=== PATIENT | female | born 1965 | race Caucasian/White ===

== ENCOUNTER 2018-12-12 11:48 | Day surgery (SDC) | payer OTHER ==
[~2018-12-12] VITALS: Ht 162.6 cm; Wt 107.0 kg
[2018-12-12] MEDS ORDERED: VITAMIN D50000 UNI1 PO (12:08)
--- NOTE | 2018-12-12 13:57 | NUR ---
12/12/18 1357 Chloe Chowdary 1311 PT ARRIVED IN PACU SLEEPY WITH NO C/O'S. ABD SOFT AND PASSING FLATUS. 1320 DR AT BEDSIDE TALKING TO PT. 1345 SITTING UP IN BED SIPPING ON JUICE.
--- NOTE | 2018-12-12 14:36 | OR ---
[facility] [address] [place], [place] [address] Signed DATE OF OPERATION: 12/12/2018 SURGEON: Millicent Sanchez MD PREOPERATIVE DIAGNOSIS: Colon screening. POSTOPERATIVE DIAGNOSIS: Normal colon to cecum. PROCEDURE PERFORMED: Total colonoscopy to cecum. ANESTHESIA: Intravenous sedation with fentanyl 100 mcg and Versed 5 mg. INDICATION: This 53-year-old morbidly obese white woman is a patient of Dr. Sinclair. She is referred for screening colonoscopy on the basis of her age. She has no bleeding, diarrhea, or constipation, and no family history of colon cancer. She understands the risks of colonoscopy including but not limited to bleeding, infection, perforation, and so on. FINDINGS: The prep was excellent. Complete colonoscopy was undertaken of the cecum without question. There was no sign of polyps, diverticular formation, colitis, or cancer. DESCRIPTION OF PROCEDURE: The patient was brought to the endoscopy suite and placed in lateral decubitus position, given intravenous sedation to the point of slurred speech and nystagmus with full cardiopulmonary monitoring. Digital rectal examination was normal. An Olympus video colonoscope was passed in the rectum and manipulated throughout the colon ultimately intubating the cecum itself. The ileocecal valve and appendiceal orifice were normal. The scope was withdrawn from that point. Examination throughout showed no sign of abnormality, specifically no diverticular formation, colitis, or cancer. Retroflexed view was normal as well. The scope was removed and the patient was taken to recovery room in good condition. CONCLUDING DIAGNOSIS: Normal colon to cecum. Electronically Signed By: MILLICENT SANCHEZ MD 12/12/18 1436 PATIENT NAME: ALEXIA ZAMBRANO OPERATIVE REPORT DATE OF : 69 REPORT #: [id number] PHYSICIAN: MILLICENT SANCHEZ MD PCP: GONZALEZ SINCLAIR DO REPORT IS CONFIDENTIAL AND NOT TO BE RELEASED WITHOUT AUTHORIZATION [facility] [address] [place] [id number] Signed PLAN: Recommend repeat colonoscopy in 10 years, sooner if clinically indicated. She will return to the ongoing care of Dr. Sinclair. MD DEMETRIA Rodriguez/MODL /[id number] cc: Gonzalez Sinclair DO Copies: GONZALEZ SINCLAIR DO ~ Electronically Signed By: MILLICENT SANCHEZ MD 12/12/18 1436 PATIENT NAME: ALEXIA ZAMBRANO OPERATIVE REPORT DATE OF : 69 REPORT #: [id number] PHYSICIAN: MILLICENT SANCHEZ MD PCP: GONZALEZ SINCLAIR DO REPORT IS CONFIDENTIAL AND NOT TO BE RELEASED WITHOUT AUTHORIZATION
== END 2018-12-12 14:10 | disposition home or self-care (01) ==
LOC: OPS 11:48 → DS 11:52 → OPS 13:00 → DS 13:00 → OPS 14:10
PROVIDERS: Surgery
PROC: 0DJD8ZZ Inspection of Lower Intestinal Tract, Via Natural or Artificial Opening Endoscopic (ICD-10-PCS; principal; 2018-12-12 13:00)
DX: Z12.11 Encounter for screening for malignant neoplasm of colon (principal); E66.01 Morbid (severe) obesity due to excess calories; K21.9 Gastro-esophageal reflux disease without esophagitis; Z68.41 Body mass index [BMI] 40.0-44.9, adult; Z85.3 Personal history of malignant neoplasm of breast
CPT/HCPCS: G0500; J2250; J3010; J7121

== ENCOUNTER 2022-01-12 06:58 | Day surgery (SDC) | payer OTHER ==
[~2022-01-12] VITALS: Ht 162.6 cm; Wt 106.8 kg
--- NOTE | ~2022-01-12 | OR ---
[facility] [address] [place], [place] [address] Draft DATE OF OPERATION: 01/12/2022 SURGEON: Carlene Terrell DO VALUATION MANAGER: Miguelangel Canchola DO. PROCEDURE: Failed hysteroscopy. PREOPERATIVE DIAGNOSIS: Postmenopausal bleeding, endometrial thickening on ultrasound, history of breast cancer, obesity and cervical stenosis. POSTOPERATIVE DIAGNOSIS: Postmenopausal bleeding, endometrial thickening on ultrasound, history of breast cancer, obesity and cervical stenosis. ANESTHESIA: MAC. COMPLICATIONS: Unable to complete procedure. FINDINGS: Stenotic cervix, false channel from apparent os at midline. Unable to visualize channel at defect noted on the right side of the cervix in the 9 o'clock position. Unable to complete. PROCEDURE INDICATIONS: The patient is a 56-year-old female with history of postmenopausal bleeding. Ultrasound revealed 7 mm stripe with a hypoechoic mass within the uterus. Risks, benefits, and alternatives to hysteroscopy, D and C were reviewed. Initially, the patient elected to have procedure performed in the office. However, due to stenosis, procedure could not be safely performed and we discussed repeating attempts with cervical ripening agent prior to procedure and ultrasound guidance. DESCRIPTION OF PROCEDURE: The patient was taken to the operating room after she confirmed having taken misoprostol 400 mg vaginally 12 hours prior as directed. She was positioned in dorsal lithotomy PATIENT NAME: ALEXIA ZAMBRANO OPERATIVE REPORT DATE OF : 69 REPORT #: [id number] PHYSICIAN: CARLENE TERRELL DO PCP: GAB SINCLAIR DO REPORT IS CONFIDENTIAL AND NOT TO BE RELEASED WITHOUT AUTHORIZATION [facility] [address] [place] [place] [address] Draft under monitored anesthesia care and was prepped and draped in normal sterile fashion. Weighted speculum was placed in the vagina and anterior lip of the cervix was grasped with an Allis clamp in the 12 o'clock position. Cervix was well-visualized with a crease noted perpendicular running from 3 o'clock to 9 o'clock. Initial attempts at dilating what appeared to be the external os were unsuccessful consistent with prior attempt in the office. Of note, small amount of bleeding was visualized from the defect on the right lateral aspect to the 9 o'clock position. The scope was introduced for better visualization without identifying a channel. Hegar dilator was placed. However, ultrasound visualization was limited. Bladder was back filled with 100 mL sterile saline through a Rocha catheter, but again cervix and uterus were poorly visualized. Once again, the channel could not be definitively identified and it was unsafe to proceed blindly. The procedure was terminated at this time. Sponge and instrument counts were correct. There was no blood loss. The patient was taken to recovery room with plans to discuss definitive surgical management in the form of hysterectomy either with myself or MULTIFOCAL LENS INSPECTOR/ONC at a followup visit in two weeks. DO DAINA Carter/DOUGLASL /[id number] Copies: ~ PATIENT NAME: ALEXIA ZAMBRANO ANKITA OPERATIVE REPORT DATE OF : 69 REPORT #: [id number] PHYSICIAN: CARLENE TERRELL DO PCP: GAB SINCLAIR DO REPORT IS CONFIDENTIAL AND NOT TO BE RELEASED WITHOUT AUTHORIZATION
[~2022-01-12 06:58] MED LIST: HAIR, SKIN & N1 EACH PO; METFORMIN HCL500 M3 PO; TOPROL XL50 MG PO; TRIPLE OMEGA C400 MG PO; VITAMIN D50000 UNI1 PO
[2022-01-12] MEDS ORDERED: PEPCID40 MG PO (07:10)
[2022-01-12] MEDS ORDERED: BIOTIN1 MG PO (07:10)
[2022-01-12] MEDS ORDERED: JOINT SUPPORT1 EACH PO (07:11)
--- NOTE | 2022-01-12 10:40 | NUR ---
01/12/22 1040 Alexia Gandara 1032-PATIENT ARRIVED TO PACU ON 6L MASK RR EVEN. PATIENT REACTIVE TO VERBAL STIMULI KEEPING EYES CLOSED. SR. IVF INFUSING. MARYCHUY PAD PLACED BENEATH PATIENT. SMALL SKIN TEAR BENEATH PANNUS THAT BACITRACIN WAS PLACED IN OR. 1035-DR. ROBLEDO TALKING TO PATIENT. PATIENT HAS EYES CLOSED. 6L MASK RR EVEN 100% DENIES PAIN OR NAUSEA. REPORTS COLD WILL PROVIDE WARM BLANKET.
--- NOTE | 2022-01-12 11:44 | NUR ---
1125 PT BACK TO DAY SURGERY ROOM, ALERT AND AWAKE DENIES PAIN OR NAUSEA. PT DRINKING WATER AND EATING JELLO, TOLERATES WELL. MARYCHUY PAD CLEAN AND DRY. WARM BLANKETS AND YUE HUGGER GIVEN TO PT. CALL LIGHT WITHIN REACH.
--- NOTE | 2022-01-12 12:44 | NUR ---
1215 PT UP TO BATHROOM SHE WAS ABLE TO VOID 200ML OF YELLOW URINE, SHE REPORTS THERE WAS A TINGE OF BLOOD ON PAPER WHEN SHE WIPED. MARYCHUY PAD IS CLEAN AND DRY. PT DENIES NAUSEA AND PAIN. DISCHARGE INSTRUCTIONS GIVEN TO PT AND BOTH VOICED UNDERSTANDING,
== END 2022-01-12 12:27 | disposition home or self-care (01) ==
LOC: DS 06:58 → OPS 06:58 → DS 09:00 → OPS 09:00
PROVIDERS: ATTEND Obstetrics & Gynecology
PROC: 0UJD8ZZ Inspection of Uterus and Cervix, Via Natural or Artificial Opening Endoscopic (ICD-10-PCS; principal; 2022-01-12 09:00)
DX: N95.0 Postmenopausal bleeding (principal); R93.89 Abnormal findings on diagnostic imaging of other specified body structures; N88.2 Stricture and stenosis of cervix uteri
CPT/HCPCS: J0131; J1100; J1644; J1885; J2001; J2250; J2405; J2704; J3010; J7121